=== PATIENT | female | born 1945 | race Caucasian/White ===

== ENCOUNTER 2017-10-16 22:01 | Emergency (ER) | payer OTHER ==
[~2017-10-16] VITALS: Ht 149.9 cm; Wt 89.8 kg
[2017-10-16] MEDS ORDERED: METFORMIN HCL500 M2 PO (22:11)
[2017-10-16] MEDS ORDERED: GLIMEPIRIDE4 MG PO (22:12)
[2017-10-16] MEDS ORDERED: LISINOPRIL20 MG PO (22:13)
[2017-10-16] MEDS ORDERED: TRIAMTERENE-HC1 EAC3 PO (22:13)
[2017-10-16] MEDS ORDERED: TIROSINT100 MCG PO (22:13)
[2017-10-16] MEDS ORDERED: SIMVASTATIN20 MG PO (22:14)
[2017-10-16] MEDS ORDERED: VITAMIN E400 UNI6 PO (22:43)
[2017-10-16] MEDS ORDERED: FISH OIL 1,0001 EAC5 PO (22:44)
[2017-10-16] MEDS ORDERED: CALCIUM 600 +1 EAC1 PO (22:44)
[2017-10-16] MEDS ORDERED: VITAMIN B-121000 MCG PO (22:45)
[2017-10-16] MEDS ORDERED: NORCO 5-325 TA1 EACH PO (22:48)
== END 2017-10-16 23:48 | disposition home or self-care (01) ==
LOC: ED 22:01
DX: S42.211A Unspecified displaced fracture of surgical neck of right humerus, initial encounter for closed fracture (principal); S42.251A Displaced fracture of greater tuberosity of right humerus, initial encounter for closed fracture; E11.9 Type 2 diabetes mellitus without complications; I10 Essential (primary) hypertension; E03.9 Hypothyroidism, unspecified; E78.00 Pure hypercholesterolemia, unspecified; Z88.6 Allergy status to analgesic agent; Z79.84 Long term (current) use of oral hypoglycemic drugs; Z79.899 Other long term (current) drug therapy; W01.0XXA Fall on same level from slipping, tripping and stumbling without subsequent striking against object, initial encounter; Z91.81 History of falling
CPT/HCPCS: 73030; 96372; 99283; J2270; J2550